=== PATIENT | female | born 1980 | race Caucasian/White ===

== ENCOUNTER 2016-10-04 13:28 | Inpatient (IN) | payer OTHER ==
[2016-10-04] MEDS ORDERED: ACETAMINOPHEN 325 MG TAB PO PRN (13:43)
[2016-10-04] MEDS ORDERED: SIMETHICONE 80 MG TAB CHEW PO PRN (13:43)
[2016-10-04] MEDS ORDERED: HYDROCORTISONE 0.5% CREAM TP PRN (13:43)
[2016-10-04] MEDS ORDERED: DOCUSATE SODIUM 100 MG CAP PO PRN (13:43)
[2016-10-04] MEDS ORDERED: HYDROCODONE/APAP 5/325 TAB PO PRN (13:43)
--- NOTE | 2016-10-04 13:47 | OBPROC ---
- Labor and Delivery Onset of Contractions Date: 10/04/16 Onset of Contractions Time: 07:00 Onset of Contractions Type: Spontaneous Rupture of Membranes Date: 10/04/16 Rupture of Membranes Time: 13: Rupture of Membranes Type: Spontaneous Amniotic Fluid Color: Clear Dilation Complete Time: 13:15 Delivery Type: Spontaneous Placenta Delivery Date: 10/04/16 Placenta Delivery Time: 13:26 EBL: 350 - Medications Labor Augmentation/Induction Meds Used: None - [place] Info A Delivery Date: 10/04/16 Delivery Time: 13:25 Sex of : Male Score (1 Min): 8 Score (5 Min): 8
[2016-10-04] MEDS ORDERED: IBUPROFEN 600 MG TAB PO ONE (13:53)
[2016-10-04] MEDS: IBUPROFEN 600 MG TAB PO PRN ×2 (14:44→20:59)
--- NOTE | 2016-10-04 15:30 | GHP ---
[f rep st] HISTORY AND PHYSICAL DATE OF ADMISSION: 10/04/2016 HISTORY OF PRESENT ILLNESS: The patient is a 36-year-old, 3, para 1, with an EDC of 017, which makes her 38 weeks and 5 days, who comes in with complaint of regular contractions since 7 a.m. on 10/04/2016. On exam in labor and delivery, patient is 10 cm, 100% effaced, cephalic, with bag of water bulging with positive bloody show. MEDICAL HISTORY: Patient has a history of migraines, history of asthma, history of depression. The patient has a history of depression. GYNECOLOGICAL HISTORY: Previous OCP use before her first . PAST SURGICAL HISTORY: TAB in 1997, wisdom teeth extraction. SPECIAL DIET: Patient is a vegetarian. HISTORY: Patient is AMA. Previous history in 11/2013: A girl that weighed 7 p ounds 5 ounces, 39 weeks, 8 hours of labor, vaginal delivery, and that baby's name is Kandi. MEDICATIONS: Patient is taking Zoloft 50 mg p.o. daily. FAMILY HISTORY: Noncontributory. SOCIAL HISTORY: Patient is . Tyrone is significant other. ALLERGIES: Patient is not allergic to any medications. OTHER MEDICATIONS: Patient occasionally uses an inhaler with exercise, vitamin D 1000 international units, and a vitamin. LABS: Patient was GBS negative. AB positive, antibody negative. RPR is nonreactive. Rubella is i mmune. Hepatitis is negative. HIV is negative. Pap, gonorrhea, and chlamydia were within normal l imits. Quad screen was negative. 1 hour GTT was within normal limits. Parvo virus was also checke d and patient was negative. PHYSICAL ASSESSMENT: GENERAL: Patient is awake, alert, oriented x3. LUNGS: Clear bilaterally. A BDOMEN: Bowel sounds are positive in all 4 quadrants. EXTREMITIES: DTRs were 1+ bilaterally. Anabell ans sign was negative bilaterally. The patient had a nurse push on admission to Labor and Delivery, and was found to be 10 cm. PLAN OF CARE: Expected management of labor. The patient quickly delivered a little boy, and the pe rineum was intact. 10 milliunits of Pitocin was utilized IM as an IV was not able to be started. T he patient is doing well. /[id number]/MODL
[2016-10-04 16:38] VITALS: RESP 16
[2016-10-04 20:44] VITALS: O2SAT 97
[2016-10-05] MEDS: IBUPROFEN 600 MG TAB PO PRN ×2 (03:10→12:22)
--- NOTE | 2016-10-05 08:07 | OBPROG ---
OBG Progress Note Assessment/Plan: Assessment: s/p PPD # 1 - pt is stable Plan: Continue routine pp care Plan for d/c home if baby is discharged Instructions reviewed No Rx given Cont PNV Pelvic rest RTC in 4 and 6 weeks for pp visit 10/05/16 08:04 Subjective: Pt seen and examined. Doing well with no complaints. Minimal cramping. Moderate lochia. Ankit reg diet, voiding and passing flatus. No BM. without difficulty. May want to go home later today after baby is circumcised. Objective: 10/05/16 03:15 Temp Pulse Resp BP Pulse Ox 36.2 C 69 16 106/62 97 10/04/16 20:00 10/04/16 20:00 10/04/16 20:00 10/04/16 20:00 10/04/16 20:00 Uterine Position/Fundal Height: Umbilicus -2 Uterine Tone: Firm - Physical Exam General Appearance: WD/WN, alert, no apparent distress Respiratory: lungs clear, normal breath sounds Cardiac/Chest: regular rate, rhythm Abdomen: normal bowel sounds, non-tender, soft, flatus (+) Genitourinary: lochia (moderate) Extremities: non-tender, normal inspection Neuro/Psych: alert, normal mood/affect, oriented x 3 ICD10 Worksheet Patient Problems: Problems Problem Status Onset (spontaneous vaginal delivery) Acute
[2016-10-05 11:22] VITALS: BP 120/82; PULSE 78; TEMP 98.2
== END 2016-10-05 17:45 | disposition home or self-care (01) | DRG 775 ==
LOC: FLD 13:28 → FOB 18:23
PROVIDERS: ADMIT Advanced Practice Midwife; ATTEND Obstetrics & Gynecology
PROC: 10E0XZZ Delivery of Products of Conception, External Approach (ICD-10-PCS; principal; 2016-10-04)
DX: O99.513 Diseases of the respiratory system complicating pregnancy, third trimester (principal); J45.909 Unspecified asthma, uncomplicated; Z3A.38 38 weeks gestation of pregnancy; Z37.0 Single live birth